=== PATIENT | male | born 1995 | race Caucasian/White ===

== ENCOUNTER 2016-04-10 10:26 | Emergency (ER) | payer BC ==
[2016-04-10 10:30] VITALS: RESP 16; TEMP 98.1
[2016-04-10] MEDS ORDERED: NS 1,000 ML IV ONE ×2 (11:23→11:24)
[2016-04-10] MEDS ORDERED: ONDANSETRON 4 MG/2 ML VIAL IVP ONE (11:24)
--- NOTE | 2016-04-10 11:26 | EDPHY ---
H & P Stated Complaint: nauseous & dizzy since last night Time Seen by Provider: 04/10/16 11:16 HPI/ROS: CHIEF COMPLAINT: Vomiting HISTORY OF PRESENT ILLNESS: Patient is a 21-year-old man who drove from [place] over the last 2 days to [place] where he went [place] in the mountains [place] in 14 degree weather. He states that soon as he got to camp he began feeling nauseous lightheaded. He vomited several times. No diarrhea. No fever. His girlfriend who is with him also had some nausea but did not vomit and her symptoms resolved when they returned to a lower altitude. His symptoms did not improve with altitude. He denies abdominal pain. He denies headache. He denies chest pain or shortness of breath. REVIEW OF SYSTEMS: Constitutional: denies: chills, fever, recent illness, recent injury EENTM: denies: blurred vision, double vision, nose congestion Respiratory: denies: cough, shortness of breath Cardiac: denies: chest pain, irregular heart rate, palpitations Gastrointestinal/Abdominal: See HPI Genitourinary: denies: dysuria, frequency, hematuria, pain Musculoskeletal: denies: joint pain, muscle pain Skin: denies: lesions, rash, jaundice, bruising Neurological: denies: headache, numbness, paresthesia, tingling, dizziness, weakness Hematologic/Lymphatic: denies: blood clots, easy bleeding, easy bruising Immunologic/allergic: denies: HIV/AIDS, transplant EXAM: GENERAL: Well-appearing, well-nourished and in no acute distress., laughing HEAD: Atraumatic, normocephalic. EYES: Pupils equal round and reactive to light, extraocular movements intact, sclera anicteric, conjunctiva are normal. ENT: TMs normal, nares patent, oropharynx clear without exudates. Moist mucous membranes. NECK: Normal range of motion, supple without lymphadenopathy or JVD. LUNGS: Breath sounds clear to auscultation bilaterally and equal. No wheezes rales or rhonchi. HEART: Regular rate and rhythm without murmurs, rubs or gallops. ABDOMEN: Soft, nontender, normoactive bowel sounds. No guarding, no rebound. No masses appreciated. BACK: No CVA tenderness, no spinal tenderness, step-offs or deformities EXTREMITIES: Normal range of motion, no pitting or edema. No clubbing or cyanosis. NEUROLOGICAL: Cranial nerves II through XII grossly intact. Normal speech, normal gait. 5/5 strength, normal movement in all extremities, normal sensation PSYCH: Normal mood, normal affect. SKIN: Warm, dry, normal turgor, no visible rashes or lesions. Source: Patient Exam Limitations: No limitations - Personal History Current Tetanus/Diphtheria Vaccine: Yes Current Tetanus Diphtheria and Acellular Pertussis (TDAP): Yes - Medical/Surgical History Hx Asthma: No Hx Chronic Respiratory Disease: No Hx Diabetes: No Hx Cardiac Disease: No Hx Renal Disease: No Hx Cirrhosis: No Hx Alcoholism: No Hx HIV/AIDS: No Hx Splenectomy or Spleen Trauma: No Other PMH: Anxiety depression - Family History Significant Family History: No pertinent family hx - Social History Smoking Status: Never smoked Alcohol Use: Sober Drug Use: None Constitutional: Initial Vital Signs Temperature (C) 36.7 C 04/10/16 10:28 Heart Rate 106 H 04/10/16 10:28 Respiratory Rate 16 04/10/16 10:28 Blood Pressure 140/67 H 04/10/16 10:28 O2 Sat (%) 99 04/10/16 10:28 O2 Delivery Mode Room Air Allergies/Adverse Reactions: No Known Allergies Allergy (Unverified 04/10/16 10:30) Home Medications: Medication Instructions Recorded Ondansetron Odt [Zofran Odt 4 mg 4 mg PO Q4 PRN #20 tab 04/10/16 (RX)] Medical Decision Making ED Course/Re-evaluation: 12:30 p.m. the patient is feeling much better. We will try p.o. challenge. 1:30 p.m. the patient feels completely better. His abdominal exam remains benign. He is tolerating p.o.. He wishes to go. I will prescribe her Zofran. We discussed indications for returning. Additional verbal discharge instructions given. Differential Diagnosis: Partial list of the Differential diagnosis considered include but were not limited to; gastroenteritis, helped sinus, food poisoning, dehydration and although unlikely based on the history and physical exam, I also considered appendicitis, diverticulitis, biliary disease, meningitis,Influenza. I discussed these differential diagnoses and the plan with the patient as well as the usual and expected course. The patient understands that the diagnosis is provisional and that in medicine we are not always correct and that further workup is often warranted. Usual and customary warnings were given. All of the patient's questions were answered. The patient was instructed to return to the emergency department should the symptoms at all worsen or return, otherwise to followup with the physician as we discussed. - Data Points Medications Given: Discontinued Medications Sodium Chloride (Ns) 1,000 mls @ 0 mls/hr IV ONCE ONE PRN Reason: Wide Open Stop: 04/10/16 11:24 Last Admin: 04/10/16 11:25 Dose: 1,000 mls Sodium Chloride (Ns) 1,000 mls @ 0 mls/hr IV ONCE ONE PRN Reason: Wide Open Stop: 04/10/16 11:25 Last Admin: 04/10/16 11:45 Dose: 1,000 mls Ondansetron HCl (Zofran) 4 mg IVP EDNOW ONE Stop: 04/10/16 11:25 Last Admin: 04/10/16 11:33 Dose: 4 mg Departure - Departure Disposition: Home, Routine, Self-Care Clinical Impression: Dehydration Vomiting Qualifiers: Vomiting type: unspecified Vomiting Intractability: non-intractable Nausea presence: with nausea Qualifier Code: (R11.2) Nausea with vomiting, unspecified Condition: Fair Instructions: Acute Nausea and Vomiting (ED), Ondansetron (By mouth) Referrals: NONE *PRIMARY CARE P,. [Primary Care Provider] - As per Instructions Oz Smith MD [Medical Doctor] - As per Instructions Prescriptions: Ondansetron Odt [Zofran Odt 4 mg (RX)] 4 mg PO Q4 PRN #20 tab PRN Reason: Nausea & Vomiting
[2016-04-10 13:49] VITALS: BP 138/79; PULSE 98; O2SAT 100
== END 2016-04-10 13:48 | disposition home or self-care (01) ==
DX: R11.2 Nausea with vomiting, unspecified (principal); E86.0 Dehydration
CPT/HCPCS: 96374; J2405